=== PATIENT | female | born 1965 | race Two or more races ===

== ENCOUNTER 2018-07-01 08:11 | Day surgery (SDC) | payer OTHER ==
[~2018-07-01 08:11] MED LIST: SYNTHROID88 MCG PO
== END 2018-07-01 18:15 | disposition home or self-care, planned readmission (81) ==
LOC: CIR.AMB 08:11
DX: S52.531A Colles' fracture of right radius, initial encounter for closed fracture (principal)

== ENCOUNTER 2019-07-02 07:15 | Outpatient (CLI) | payer OTHER | END 2019-07-02 07:25 | disposition home or self-care (01) | LOC: SONOGRAMA 07:15 | DX: K57.30 Diverticulosis of large intestine without perforation or abscess without bleeding (principal); Z86.010 Personal history of colon polyps; R10.13 Epigastric pain; R10.30 Lower abdominal pain, unspecified ==

== ENCOUNTER 2019-08-17 08:52 | Outpatient (CLI) | payer OTHER | END 2019-08-17 09:00 | disposition home or self-care (01) | LOC: MAMO-SONO 08:52 | DX: N60.11 Diffuse cystic mastopathy of right breast (principal); N60.12 Diffuse cystic mastopathy of left breast ==

== ENCOUNTER 2019-09-15 06:16 | Day surgery (SDC) | payer OTHER | END 2019-09-15 12:20 | disposition home or self-care (01) | LOC: CIR.AMB 06:16 | DX: S52.531G Colles' fracture of right radius, subsequent encounter for closed fracture with delayed healing (principal) ==

== ENCOUNTER 2019-10-17 09:25 | Outpatient (CLI) | payer OTHER | END 2019-10-17 09:30 | disposition home or self-care (01) | LOC: RAD 09:25 | DX: S52.511A Displaced fracture of right radial styloid process, initial encounter for closed fracture (principal) ==

== ENCOUNTER 2020-11-11 06:28 | Outpatient (CLI) | payer OTHER | END 2020-11-11 07:54 | disposition home or self-care (01) | LOC: LAB 06:28 | DX: E03.8 Other specified hypothyroidism (principal); I10 Essential (primary) hypertension; E78.2 Mixed hyperlipidemia; E11.9 Type 2 diabetes mellitus without complications ==

== ENCOUNTER 2020-11-11 13:45 | Outpatient (CLI) | payer OTHER | END 2020-11-11 13:54 | disposition home or self-care (01) | LOC: MAMO-SONO 13:45 | DX: N60.01 Solitary cyst of right breast (principal); N60.02 Solitary cyst of left breast; N60.11 Diffuse cystic mastopathy of right breast; N60.12 Diffuse cystic mastopathy of left breast; R10.2 Pelvic and perineal pain; E04.2 Nontoxic multinodular goiter ==

== ENCOUNTER → 2021-05-12 08:28 | Outpatient (CLI) | payer OTHER | END | disposition home or self-care (01) | LOC: LAB 08:28 | PROVIDERS: ATTEND Internal Medicine Endocrinology, Diabetes & Metabolism | DX: E03.8 Other specified hypothyroidism (principal); E55.9 Vitamin D deficiency, unspecified; E21.3 Hyperparathyroidism, unspecified; E11.69 Type 2 diabetes mellitus with other specified complication ==

== ENCOUNTER 2021-08-19 07:20 | Outpatient (CLI) | payer OTHER | END 2021-08-19 07:21 | disposition home or self-care (01) | LOC: LAB 07:20 | PROVIDERS: ATTEND Internal Medicine Endocrinology, Diabetes & Metabolism | DX: M62.838 Other muscle spasm (principal); I11.9 Hypertensive heart disease without heart failure; E11.9 Type 2 diabetes mellitus without complications; E03.4 Atrophy of thyroid (acquired); E78.89 Other lipoprotein metabolism disorders; E03.8 Other specified hypothyroidism ==

== ENCOUNTER 2022-02-21 06:43 | Outpatient (CLI) | payer OTHER | END 2022-02-21 06:47 | disposition home or self-care (01) | LOC: LAB 06:43 | PROVIDERS: ATTEND Internal Medicine Endocrinology, Diabetes & Metabolism | DX: E03.9 Hypothyroidism, unspecified (principal); E11.9 Type 2 diabetes mellitus without complications; I11.9 Hypertensive heart disease without heart failure; E21.3 Hyperparathyroidism, unspecified; E03.8 Other specified hypothyroidism; E11.65 Type 2 diabetes mellitus with hyperglycemia ==

== ENCOUNTER 2022-05-22 06:23 | Outpatient (CLI) | payer OTHER | END 2022-05-22 06:24 | disposition home or self-care (01) | LOC: LAB 06:23 | PROVIDERS: ATTEND Internal Medicine | DX: E78.2 Mixed hyperlipidemia (principal); I10 Essential (primary) hypertension; E03.8 Other specified hypothyroidism; R73.01 Impaired fasting glucose; E55.9 Vitamin D deficiency, unspecified; E53.8 Deficiency of other specified B group vitamins ==

== ENCOUNTER → 2022-07-13 | Outpatient (CLI) | payer OTHER | END | disposition home or self-care (01) | LOC: SONOGRAMA 07:40 | PROVIDERS: ATTEND Internal Medicine | DX: R00.2 Palpitations (principal); E06.3 Autoimmune thyroiditis; G47.33 Obstructive sleep apnea (adult) (pediatric); J98.11 Atelectasis; K57.30 Diverticulosis of large intestine without perforation or abscess without bleeding; K64.8 Other hemorrhoids; E80.4 Gilbert syndrome; D70.9 Neutropenia, unspecified; E53.8 Deficiency of other specified B group vitamins; E55.9 Vitamin D deficiency, unspecified; Z68.24 Body mass index [BMI] 24.0-24.9, adult; N20.0 Calculus of kidney; N20.1 Calculus of ureter; R10.84 Generalized abdominal pain ==

== ENCOUNTER 2022-08-24 06:13 | Outpatient (CLI) | payer OTHER | END 2022-08-24 06:14 | disposition home or self-care (01) | LOC: LAB 06:13 | PROVIDERS: ATTEND Internal Medicine | DX: R00.2 Palpitations (principal); E06.3 Autoimmune thyroiditis; G47.33 Obstructive sleep apnea (adult) (pediatric); J98.11 Atelectasis; K57.30 Diverticulosis of large intestine without perforation or abscess without bleeding; K64.8 Other hemorrhoids; E80.4 Gilbert syndrome; D70.9 Neutropenia, unspecified; E53.8 Deficiency of other specified B group vitamins; E55.9 Vitamin D deficiency, unspecified; Z68.24 Body mass index [BMI] 24.0-24.9, adult; N39.0 Urinary tract infection, site not specified; E03.8 Other specified hypothyroidism; E11.65 Type 2 diabetes mellitus with hyperglycemia; E78.1 Pure hyperglyceridemia ==

== ENCOUNTER 2022-08-24 09:55 | Outpatient (CLI) | payer OTHER | END 2022-08-24 10:04 | disposition home or self-care (01) | LOC: NUCLEAR 09:55 | PROVIDERS: ATTEND Internal Medicine Endocrinology, Diabetes & Metabolism | DX: M81.0 Age-related osteoporosis without current pathological fracture (principal); Z88.8 Allergy status to other drugs, medicaments and biological substances ==

== ENCOUNTER → 2023-01-09 06:07 | Outpatient (CLI) | payer OTHER | END | disposition home or self-care (01) | LOC: LAB 06:07 | PROVIDERS: ATTEND Internal Medicine Gastroenterology | DX: K57.30 Diverticulosis of large intestine without perforation or abscess without bleeding (principal); R10.84 Generalized abdominal pain; K76.89 Other specified diseases of liver; Z86.010 Personal history of colon polyps; D68.8 Other specified coagulation defects; N39.0 Urinary tract infection, site not specified; E78.2 Mixed hyperlipidemia; R74.8 Abnormal levels of other serum enzymes; R00.2 Palpitations; E06.3 Autoimmune thyroiditis; G47.33 Obstructive sleep apnea (adult) (pediatric); J98.11 Atelectasis; K64.8 Other hemorrhoids; E80.4 Gilbert syndrome; D70.9 Neutropenia, unspecified; E53.8 Deficiency of other specified B group vitamins; E55.9 Vitamin D deficiency, unspecified; Z68.24 Body mass index [BMI] 24.0-24.9, adult; M06.4 Inflammatory polyarthropathy ==